=== PATIENT | female | born 1970 | race African-American/Black ===

== ENCOUNTER 2017-08-12 18:26 | Emergency (ER) | payer BC, OTHER ==
--- NOTE | 2017-08-12 19:04 | PDOC ---
Rapid Medical Evaluation Time Seen by Provider: 08/12/17 18:58 Medical Evaluation: Allergies Allergy/AdvReac Type Severity Reaction Status Date / Time Penicillins Allergy Intermediate Verified 05/21/13 18:38 pseudoephedrine HCl Allergy Mild Verified 05/21/13 18:38 [From [facility]] 08/12/17 18:58 The patient presents with a chief complaint of: [Fever, bodyaches, Left sided Chest pain for one hour radiating to the back, Was diagnosed at urgent care yesterday with the Influenza A. ] I have performed a brief in-person evaluation of this patient. Pertinent physical exam findings: Temp 99.5 Lungs clear, HR 104, Lungs clear Pain on palpation to the left side of the chest] I have ordered the following: [EKG, chest Xray] The patient will proceed to the ED for further evaluation. 08/12/17 19:04 Discharge Disposition - Diagnosis Chest pain Qualifiers: Chest pain type: other chest pain Qualified Code(s): R07.89 - Other chest pain ; R07.8 - Other chest pain - Referrals - Patient Instructions - Post Discharge Activity
[2017-08-12 19:05] VITALS: BP 116/75; PULSE 104; TEMP 99.5; BMI 44.6
[2017-08-12] MEDS ORDERED: IBUPROFEN 600 MG TABLET (FP) PO ONE ×2 (19:46→20:06)
[2017-08-12] MEDS ORDERED: SODIUM CHLORIDE 1,000 ML IV STA ×2 (19:46→22:03)
[2017-08-12] MEDS ORDERED: METOCLOPRAMIDE HCL INJECTION 10 MG/2 ML VIAL IVPUSH ONE ×2 (19:46→22:03)
--- NOTE | 2017-08-12 19:57 | PDOC ---
History of Present Illness - General History Source: Patient Exam Limitations: No Limitations - History of Present Illness Initial Comments: 08/12/17 20:18 Patient is a 47 year old female with a significant past medical history of Lupus , HTN, who presents to the ED with complaints of chest pain that began this morning. Patient reports experiencing cold like symptoms earlier this week suddenly while at home. She reports experiencing low grade fever yesterday afternoon prompting her to go to the urgent care center for evaluation, and was diagnosed with Flu type A and prescribed Tamiflu. Patient reports experiencing chest pain this afternoon while at home prompting her to come into the ED for further evaluation. She reports chest pain is a sharp localized pain that is increased with coughing,that she states is non productive. Patient states she has been experiencing a piercing headache that she states feels like she has a knife at the top of her head. She reports having bites throughout her body due to previous living conditions, but any associated itchiness. Denies nausea, vomiting. Denies fevers, chills. Denies dysuria, hematuria, Constipation, diarrhea. Denies any other symptoms. Allergies: Penicillins, pseudoephedrine HCl, Peanuts, Sumatriptan Social history: No smoking. No alcohol. No illicit drugs. Surgical history: None PMD: Dr. Espinosa <Ricardo Maxwell - Last Filed: 08/12/17 21:04> <Estrella Juarez - Last Filed: 08/12/17 23:42> - General Chief Complaint: Chest Pain Stated Complaint: FEVER Time Seen by Provider: 08/12/17 18:58 Past History <Ricardo Maxwell - Last Filed: 08/12/17 21:04> - Travel Traveled outside of the country in the last 30 days: No - Past Medical History COPD: No HTN: Yes Other medical history: LUPUS, MIXED CONNECTIVE TISSUE DISEASE Comment:: 08/12/17 21:45 HTN 2/2 SLE - Immunization History Td Vaccination: Yes TDAP Vaccination: Yes Immunization Up to Date: No - Suicide/Smoking/Psychosocial Hx Smoking Status: No Smoking History: Never smoked Number of Cigarettes Smoked Daily: 0 Information on smoking cessation initiated: No Hx Alcohol Use: No Drug/Substance Use Hx: No Substance Use Type: None <Estrella Juarez - Last Filed: 08/12/17 23:42> - Past Medical History Allergies/Adverse Reactions: Allergies Allergy/AdvReac Type Severity Reaction Status Date / Time Penicillins Allergy Intermediate Verified 08/12/17 18:59 pseudoephedrine HCl Allergy Mild Verified 08/12/17 18:59 [From Sudafed] peanut Allergy Verified 08/12/17 18:59 sumatriptan [From Imitrex] Allergy Verified 08/12/17 18:59 Home Medications: Ambulatory Orders No Home Medications 0 dose .ROUTE UTDICT 04/02/12 Diphenhydramine HCl [Benadryl Capsule -] 25 mg PO Q8H #16 capsule 05/22/13 Prednisone [Deltasone -] 20 mg PO UTDICT #8 tablet 05/22/13 Review of Systems - Review of Systems Able to Perform ROS?: Yes Comments:: 08/12/17 21:45 See HPI. remainder of systems reviewed and negative. All Other Systems: Reviewed and Negative <Estrella Juarez - Last Filed: 08/12/17 23:42> *Physical Exam - Vital Signs Last Vital Signs Temp Pulse Resp BP Pulse Ox 99.5 F 104 H 18 116/75 100 08/12/17 19:00 08/12/17 19:00 08/12/17 19:00 08/12/17 19:00 08/12/17 19:00 <Ricardo Maxwell - Last Filed: 08/12/17 21:04> - Vital Signs Last Vital Signs Temp Pulse Resp BP Pulse Ox 99.5 F 104 H 18 116/75 100 08/12/17 19:00 08/12/17 19:00 08/12/17 19:00 08/12/17 19:00 08/12/17 19:00 - Physical Exam Comments: 08/12/17 21:46 NAD EOMI, KRISTOPHER MMM, OP WNL NCAT, no midline cervical tenderness RRR, nl s1/s2, no m/r/g CTABL, no w/r/r, point tenderness low mid sternum. Soft, NTND No edema, WWP, no rash Neuro grossly intact, gait WNL, moving all 4 A&O x 3, mood/affect WNL. <Estrella Juarez - Last Filed: 08/12/17 23:42> Medical Decision Making - Medical Decision Making 08/12/17 21:48 A: 47yoF w/ active dx of Flu + on tamiflu presents w/ spot of chest tenderness midsterum and headache. Pt is taking tylenol only at home for flu symptoms, no trial of other analgesics. - sxs control - ekg - cxr - DC. 08/12/17 22:02 Pt feeling better after meds, complains of persistent headache in single spot on head. repeat meds, reeval. 08/12/17 23:38 Pt feeling much better w/ 2nd L IVF and reglan. All symptoms resolved. Counseled pt re: symptommatic control, rest, oral hydration for flu. has PMD f/u on Saturday Pt feels comfortable going home and verbalizes understanding of discharge instructions. <Estrella Juarez - Last Filed: 08/12/17 23:42> *DC/Admit/Observation/Transfer - Attestations Scribe Attestion: 08/12/17 20:18 Documentation prepared by Ricardo Maxwell, acting as medical aide for Estrella Juarez MD, MD/DO. <Ricardo Maxwell - Last Filed: 08/12/17 21:04> - Discharge Dispostion Admit: No <Estrella Juarez - Last Filed: 08/12/17 23:42> Diagnosis at time of Disposition: Headache, Influenza A Chest pain Qualifiers: Chest pain type: other chest pain Qualified Code(s): R07.89 - Other chest pain - Discharge Dispostion Disposition: HOME Condition at time of disposition: Stable - Referrals Referrals: Kuldip Espinosa MD [Primary Care Provider] - - Patient Instructions Printed Discharge Instructions: DI for Viral Upper Respiratory Infection -- Adult Additional Instructions: Symptommatic control as discussed. Tylenol for fevers ibuprofen for aches/pains/headche decongestant for sinus congestion, cough medicine for cough. throat lozenges for sore throat, etc. drink plenty of fluids with electrolytes -- soup, gatorade, water with electrolyte tablet added (eg- Emergen-C, Airborne, etc) eat a regular diet as tolerated. See your primary doctor on saturday as scheduled. - Post Discharge Activity
[2017-08-12] MEDS ORDERED: METOCLOPRAMIDE HCL INJECTION 10 MG/2 ML VIAL ONE ×2 (20:06→22:17)
[2017-08-12] MEDS ORDERED: morphine CARPU-JECT 4 MG/1 ML DISP.SYRIN IVPUSH ONE (22:03)
[2017-08-12] MEDS ORDERED: MORPHINE SULFATE 10 MG/1 ML *VIAL ONE (22:17)
--- NOTE | 2017-08-13 14:05 | EKG ---
Test Reason : Blood Pressure : / mmHG Vent. Rate : 082 BPM Atrial Rate : 082 BPM P-R Int : 132 ms QRS Dur : 072 ms QT Int : 352 ms P-R-T Axes : 058 034 025 degrees QTc Int : 411 ms NORMAL SINUS RHYTHM NORMAL ECG WHEN COMPARED WITH ECG OF 21-MAY-2013 19:16, NO SIGNIFICANT CHANGE WAS FOUND Confirmed by MD JESSIKA, ABDOULAYE ([id number]) on 08/13/2017 2:05:47 PM Referred By: Confirmed By:ABDOULAYE ROSEN MD
== END 2017-08-12 23:53 | disposition home or self-care (01) ==
LOC: JER 18:26
PROC: 3E033GC Introduction of Other Therapeutic Substance into Peripheral Vein, Percutaneous Approach (ICD-10-PCS; principal; 2017-08-12)
PROC: 3E033GC Introduction of Other Therapeutic Substance into Peripheral Vein, Percutaneous Approach (ICD-10-PCS; 2017-08-12)
PROC: 3E033NZ Introduction of Analgesics, Hypnotics, Sedatives into Peripheral Vein, Percutaneous Approach (ICD-10-PCS; 2017-08-12)
DX: J09.X2 Influenza due to identified novel influenza A virus with other respiratory manifestations (principal)
CPT/HCPCS: 71046-TC; 93005; 93010; 99283-25

== ENCOUNTER 2020-06-15 16:45 | Emergency (ER) | payer BC ==
[2020-06-15 16:54] VITALS: TEMP 98.3; BMI 36.6
[2020-06-15 19:55] LABS: POTASSIUM 3.5 mmol/L (3.5-5.1)
[2020-06-15 19:56] LABS: BASO % 0.9 % (0-2.0); EOS % 1.6 % (0-4.5); HEMATOCRIT 38.1 % (32.4-45.2); HEMOGLOBIN 12.3 GM/dL (10.7-15.3); LYMPH % 18.4 % (8-40); MCH 27.3 pg (25.7-33.7); MCHC 32.2 g/dl (32.0-36.0); MEAN CELL VOLUME 84.6 fl (80-96); MONO % 10.9 % (3.8-10.2); NEUT % 68.2 % (42.8-82.8); PLATELET COUNT 235 K/MM3 (134-434); RDW 15.9 % (11.6-15.6); WHITE BLOOD COUNT 7.6 K/mm3 (4.0-10.0)
[2020-06-15 19:58] LABS: ALBUMIN 3.5 g/dl (3.4-5.0); CALCIUM 9.3 mg/dL (8.5-10.1); MAGNESIUM 1.9 mg/dL (1.8-2.4)
[2020-06-15 20:02] LABS: CREATININE 0.7 mg/dL (0.55-1.3); INR 1.06 (0.83-1.09); PROTHROMBIN TIME (PATIENT) 12.8 SEC (9.7-13.0)
[2020-06-15 20:03] LABS: BILIRUBIN,TOTAL 0.3 mg/dL (0.2-1)
[2020-06-15 20:04] LABS: ACTIVATED PTT 33.3 SECONDS (25.2-36.5)
[2020-06-15 20:07] LABS: N-TERMINAL BNP 44.6 pg/ml (5-125)
[2020-06-15 20:10] LABS: LDH 200 U/L (84-246)
[2020-06-15 21:18] LABS: PH,URINE 5.5 (5.0-8.0); URINE APPEARANCE CLEAR; URINE BILIRUBIN NEGATIVE (NEGATIVE); URINE COLOR YELLOW; URINE GLUCOSE (UA) NEGATIVE (NEGATIVE); URINE KETONE TRACE (NEGATIVE); URINE LEUK ESTERASE NEGATIVE (NEGATIVE); URINE NITRITE NEGATIVE (NEGATIVE); URINE PROTEIN NEGATIVE (NEGATIVE); URINE UROBILINOGEN 0.2 mg/dL (0.2-1.0)
[2020-06-15 21:23] LABS: HCG,QUALITATIVE URINE Negative
[2020-06-15 21:34] VITALS: BP 148/74; PULSE 61
== END 2020-06-15 22:15 | disposition home or self-care (01) ==
LOC: JER 16:45
DX: R00.2 Palpitations (principal)
CPT/HCPCS: 36415; 71046-TC-FY; 80053; 81003; 82550; 82728; 83615; 83735; 83880; 84439; 84443; 84481; 84484; 84703; 85025; 85610; 85730; 86140; 93005; 93010; 99285-25

== ENCOUNTER 2020-06-19 21:48 | Emergency (ER) | payer BC ==
[2020-06-19 21:57] VITALS: TEMP 98.1; BMI 35.9
[2020-06-19] MEDS ORDERED: METOCLOPRAMIDE HCL INJECTION 10 MG/2 ML VIAL IVPUSH ONE (22:32)
[2020-06-19] MEDS ORDERED: ACETAMINOPHEN 1000 MG/100 ML VIAL (NON FORMULARY) IVPB ONE (22:43)
[2020-06-19] MEDS ORDERED: ACETAMINOPHEN INJECTION 100 ML IVPB ONE (22:44)
[2020-06-19] MEDS ORDERED: METOCLOPRAMIDE HCL INJECTION 10 MG/2 ML VIAL ONE (22:44)
[2020-06-19 23:23] LABS: HEMATOCRIT 39.2 % (32.4-45.2); HEMOGLOBIN 13.1 GM/dL (10.7-15.3); MCH 28.6 pg (25.7-33.7); MCHC 33.5 g/dl (32.0-36.0); MEAN CELL VOLUME 85.6 fl (80-96); MEAN PLT VOLUME 8.6 fl (7.5-11.1); PLATELET COUNT 206 K/MM3 (134-434); RBC 4.58 M/mm3 (3.60-5.2); RDW 16.4 % (11.6-15.6); WHITE BLOOD COUNT 6.6 K/mm3 (4.0-10.0)
[2020-06-19 23:42] LABS: POTASSIUM 3.6 mmol/L (3.5-5.1)
[2020-06-19 23:45] LABS: CALCIUM 8.9 mg/dL (8.5-10.1)
[2020-06-19 23:46] LABS: ALBUMIN 3.3 g/dl (3.4-5.0)
[2020-06-19 23:49] LABS: CREATININE 0.8 mg/dL (0.55-1.3)
[2020-06-19 23:50] LABS: BILIRUBIN,TOTAL 0.6 mg/dL (0.2-1); TOT PROT 6.9 g/dl (6.4-8.2)
[2020-06-20 00:45] VITALS: BP 132/70; PULSE 76
== END 2020-06-20 00:46 | disposition home or self-care (01) ==
LOC: JER 21:48
PROC: 3E0333Z Introduction of Anti-inflammatory into Peripheral Vein, Percutaneous Approach (ICD-10-PCS; principal; 2020-06-19)
PROC: 3E033GC Introduction of Other Therapeutic Substance into Peripheral Vein, Percutaneous Approach (ICD-10-PCS; 2020-06-19)
DX: R51.9 Headache, unspecified (principal)
CPT/HCPCS: 36415; 80053; 85027; 93005; 93010; 99284-25; J0131

== ENCOUNTER 2020-07-04 19:44 | Emergency (ER) | payer BC ==
[2020-07-04 20:17] VITALS: BP 154/83; PULSE 97; TEMP 98.1; BMI 35.5
== END 2020-07-04 22:55 | disposition home or self-care (01) ==
LOC: SUPCPDRO 19:44 → JER 19:44
DX: R00.0 Tachycardia, unspecified (principal)
CPT/HCPCS: 93005; 93010; 99283-25

== ENCOUNTER 2022-12-02 11:05 | Emergency (ER) | payer BC ==
[2022-12-02 11:18] VITALS: RESP 18; BMI 32.5
[2022-12-02] MEDS ORDERED: ACETAMINOPHEN INJECTION 100 ML IVPB ONE ×2 (12:21→12:29)
[2022-12-02] MEDS ORDERED: METOCLOPRAMIDE HCL INJECTION 10 MG/2 ML VIAL IVPB ONE (12:21)
[2022-12-02] MEDS ORDERED: ACETAMINOPHEN 1000 MG/100 ML BAG IVPB ONE (12:21)
[2022-12-02] MEDS ORDERED: METOCLOPRAMIDE HCL INJECTION 10 MG/2 ML VIAL ONE ×2 (12:21→12:28)
[2022-12-02] MEDS ORDERED: SODIUM CHLORIDE 0.9% 500 ML INFUS.BAG IV ONE (12:22)
[2022-12-02 12:33] LABS: BASO % 0.7 % (0-2.0); EOS % 0.7 % (0-4.5); HEMATOCRIT 36.2 % (32.4-45.2); HEMOGLOBIN 12.1 GM/dL (10.7-15.3); LYMPH % 23.2 % (8-40); MCH 26.9 pg (25.7-33.7); MCHC 33.3 g/dl (32.0-36.0); MEAN CELL VOLUME 80.7 fl (80-96); MEAN PLT VOLUME 8.8 fl (7.5-11.1); MONO % 9.6 % (3.8-10.2); NEUT % 65.8 % (42.8-82.8); PLATELET COUNT 162 10^3/uL (134-434); RBC 4.48 M/mm3 (3.60-5.2); RDW 18.2 % (11.6-15.6); WHITE BLOOD COUNT 5.2 K/mm3 (4.0-10.0)
[2022-12-02 12:39] LABS: PROTHROMBIN TIME (PATIENT) 11.6 SEC (9.7-13.0)
[2022-12-02 12:42] LABS: ACTIVATED PTT 32.6 SECONDS (25.2-36.5)
[2022-12-02 12:52] LABS: POTASSIUM 3.8 mmol/L (3.5-5.1)
[2022-12-02 12:55] LABS: ALBUMIN 3.2 g/dl (3.4-5.0); BLOOD UREA NITROGEN 13.6 mg/dL (7-18); CALCIUM 9.3 mg/dL (8.5-10.1)
[2022-12-02 12:58] LABS: CREATININE 0.7 mg/dL (0.55-1.3)
[2022-12-02 12:59] LABS: BILIRUBIN,TOTAL 0.8 mg/dL (0.2-1); TOT PROT 6.6 g/dl (6.4-8.2)
[2022-12-02 15:25] VITALS: BP 136/63; PULSE 63; TEMP 98
== END 2022-12-02 15:37 | disposition home or self-care (01) ==
LOC: JER 11:05
PROC: 3E033NZ Introduction of Analgesics, Hypnotics, Sedatives into Peripheral Vein, Percutaneous Approach (ICD-10-PCS; principal; 2022-12-02)
PROC: 3E033GC Introduction of Other Therapeutic Substance into Peripheral Vein, Percutaneous Approach (ICD-10-PCS; 2022-12-02)
PROC: 3E033GC Introduction of Other Therapeutic Substance into Peripheral Vein, Percutaneous Approach (ICD-10-PCS; 2022-12-02)
DX: R07.89 Other chest pain (principal); R51.9 Headache, unspecified; R41.0 Disorientation, unspecified; S06.0XAD Concussion with loss of consciousness status unknown, subsequent encounter; W01.198A Fall on same level from slipping, tripping and stumbling with subsequent striking against other object, initial encounter
CPT/HCPCS: 36415; 70450-TC; 71046-TC-FY; 80053; 84484; 85025; 85610; 85730; 93005; 93010; 99285-25

== ENCOUNTER 2023-03-19 23:39 | Emergency (ER) | payer BC ==
[2023-03-19 23:55] VITALS: TEMP 98.3; BMI 37.8
[2023-03-20] MEDS ORDERED: ACETAMINOPHEN 325 MG TABLET (FP) PO ONE (01:11)
[2023-03-20] MEDS ORDERED: ACETAMINOPHEN 325 MG TABLET (FP) ONE (01:48)
[2023-03-20 02:36] LABS: BASO % 0.7 % (0-2.0); EOS % 2.7 % (0-4.5); HEMOGLOBIN 12.5 GM/dL (10.7-15.3); LYMPH % 15.9 % (8-40); MCH 26.7 pg (25.7-33.7); MCHC 32.9 g/dl (32.0-36.0); MEAN CELL VOLUME 81.1 fl (80-96); MEAN PLT VOLUME 8.8 fl (7.5-11.1); MONO % 13.2 % (3.8-10.2); NEUT % 67.5 % (42.8-82.8); PLATELET COUNT 190 10^3/uL (134-434); RBC 4.69 M/mm3 (3.60-5.2); WHITE BLOOD COUNT 7.5 K/mm3 (4.0-10.0)
[2023-03-20 02:43] LABS: INR 0.94 (0.83-1.09); PROTHROMBIN TIME (PATIENT) 10.9 SEC (9.7-13.0)
[2023-03-20 02:46] LABS: ACTIVATED PTT 31.5 SECONDS (25.2-36.5)
[2023-03-20 03:24] LABS: POTASSIUM 4.2 mmol/L (3.5-5.1)
[2023-03-20 03:26] LABS: ALBUMIN 3.5 g/dl (3.4-5.0); CALCIUM 9.6 mg/dL (8.5-10.1)
[2023-03-20 03:27] LABS: MAGNESIUM 2.2 mg/dL (1.8-2.4)
[2023-03-20 03:29] LABS: CREATININE 0.8 mg/dL (0.55-1.3)
[2023-03-20 03:31] LABS: BILIRUBIN,TOTAL 0.2 mg/dL (0.2-1); TOT PROT 7.3 g/dl (6.4-8.2)
[2023-03-20 05:38] VITALS: BP 140/61; PULSE 61; RESP 14
== END 2023-03-20 05:45 | disposition home or self-care (01) ==
LOC: JER 23:39
DX: R00.2 Palpitations (principal); R00.0 Tachycardia, unspecified; R91.1 Solitary pulmonary nodule
CPT/HCPCS: 36415; 71046-TC-FY; 71275-TC; 80053; 82550; 83735; 84484; 84703; 85025; 85379; 85610; 85730; 93005; 93010; 99285-25; Q9967

== ENCOUNTER 2023-06-13 04:19 | Day surgery (SDC) | payer BC ==
[2023-06-10 17:37] VITALS: BMI 36.8
[2023-06-13] MEDS ORDERED: BUPIVACAINE HCL/PF 0.25% (2.5MG/ML) 10 ML VIAL ONE (09:40)
[2023-06-13] MEDS ORDERED: HEPARIN NA (PORCINE) 5,000 UNITS/ML 1ML VIAL ONE (09:44)
[2023-06-13] MEDS ORDERED: PROPOFOL 20 ML ONE ×2 (09:46→11:00)
[2023-06-13] MEDS ORDERED: BUPIVACAINE HCL/PF 0.25% (2.5MG/ML) 10 ML VIAL IJ ONE ×2 (09:47)
[2023-06-13] MEDS ORDERED: MIDAZOLAM HCL 2 MG/2 ML SINGLE DOSE VIAL ONE (09:47)
[2023-06-13] MEDS ORDERED: FENTANYL CITRATE/PF 50 MCG/ML VIAL ONE ×3 (09:47→10:50)
[2023-06-13] MEDS ORDERED: SUCCINYLCHOLINE CHLORIDE 200 MG/10 ML SYRINGE ONE (09:47)
[2023-06-13] MEDS ORDERED: ceFAZolin SODIUM 1 GM VIAL IVPB ONE (10:11)
[2023-06-13] MEDS ORDERED: PROMETHAZINE HCL 25 MG/1 ML VIAL IVPB PRN (11:24)
[2023-06-13] MEDS ORDERED: oxyCODONE HCL 5 MG TABLET PO PRN (11:24)
[2023-06-13] MEDS ORDERED: ONDANSETRON 4 MG/2 ML VIAL IVPUSH PRN (11:24)
[2023-06-13] MEDS ORDERED: LACTATED RINGERS SOLUTION 1,000 ML IV SCH (11:30)
[2023-06-13 14:16] VITALS: RESP 18
[2023-06-13 14:23] VITALS: BP 116/66; PULSE 64; TEMP 98.4
== END 2023-06-13 14:45 | disposition home or self-care (01) ==
LOC: JASU-SURG 04:19
PROVIDERS: ATTEND Student in an Organized Health Care Education/Training Program
PROC: 07BJ0ZX Excision of Left Inguinal Lymphatic, Open Approach, Diagnostic (ICD-10-PCS; principal; 2023-06-13 09:30)
DX: I88.8 Other nonspecific lymphadenitis (principal)
CPT/HCPCS: 81025; 87070; 87075; 87102; 87116; 87205; 87206; 87210; 88307-TC; 88312-TC; 94760; J1644

== ENCOUNTER 2025-01-31 13:48 | Observation (INO) | payer BC ==
[2025-01-31 15:09] LABS: ABSOLUTE IMMATURE GRANULOCYTES 0.01 x10^3/uL (0.0-0.031); BASOPHILS # 0.02 x10^3/uL (0.01-0.08); EOSINOPHIL % 1.6 % (0.7-5.8); EOSINOPHILS # 0.09 x10^3/uL (0.04-0.36); MCHC 31.7 g/dl (32.2-35.5); MEAN CELL VOLUME 93.5 fl (79.4-94.8); MEAN PLT VOLUME 10.4 fl (9.4-12.3); MONOCYTE # 0.60 x10^3/uL (0.24-0.86); MONOCYTE % 10.5 % (4.7-12.5); RDW 14.3 % (12.3-16.6)
[2025-01-31 15:17] LABS: INR 0.95 (0.83-1.09); PROTHROMBIN TIME (PATIENT) 10.4 SEC (9.7-13.0)
[2025-01-31 15:20] LABS: ACTIVATED PTT 28.1 SECONDS (25.2-36.5)
[2025-01-31 15:30] LABS: CO2 27.0 mmol/L (21-32); GLUCOSE,RANDOM 93.0 mg/dL (74-106)
[2025-01-31 15:33] LABS: CREATININE 0.7 mg/dL (0.55-1.3); SGOT/AST 22.0 U/L (15-37); SGPT/ALT 22.0 U/L (13-61)
[2025-01-31 15:34] LABS: TOT PROT 6.3 g/dl (6.4-8.2)
[2025-01-31 15:35] LABS: ALK PHOS 88.0 U/L (45-117)
[2025-01-31] MEDS: LACTATED RINGERS SOLUTION 1000 ML INFUS.BAG IV ONE (15:41)
[2025-01-31] MEDS ORDERED: ACETAMINOPHEN INJECTION 100 ML ONE (16:14)
[2025-01-31] MEDS: ACETAMINOPHEN 1000 MG/100 ML BAG IVPB ONE ×2 (16:17→20:06)
[2025-01-31 17:06] LABS: URINE APPEARANCE CLEAR; URINE BILIRUBIN NEGATIVE (NEGATIVE); URINE COLOR YELLOW; URINE GLUCOSE (UA) NEGATIVE (NEGATIVE); URINE KETONE NEGATIVE (NEGATIVE); URINE LEUK ESTERASE NEGATIVE (NEGATIVE); URINE NITRITE NEGATIVE (NEGATIVE); URINE PROTEIN NEGATIVE (NEGATIVE); URINE UROBILINOGEN 0.2 mg/dL (0.2-1.0)
[2025-01-31] MEDS ORDERED: IBUPROFEN 600 MG TABLET (FP) PO ONE (19:26)
[2025-01-31] MEDS ORDERED: IBUPROFEN 400 MG TABLET (FP) PO ONE (19:30)
[2025-01-31] MEDS: IBUPROFEN 400 MG TABLET (FP) PO ONE (19:30)
[2025-01-31] MEDS ORDERED: hydrOXYzine PAMOATE 25 MG CAPSULE (FP) PO ONE (23:27)
[2025-01-31] MEDS ORDERED: MELATONIN 5 MG TABLETS ONE (23:27)
[2025-01-31] MEDS: hydrOXYzine PAMOATE 25 MG CAPSULE (FP) PO ONE (23:31)
[2025-01-31] MEDS: MELATONIN 5 MG TABLETS PO ONE (23:31)
[2025-02-01 07:09] LABS: MCHC 31.3 g/dl (32.2-35.5); MEAN CELL VOLUME 94.1 fl (79.4-94.8); MEAN PLT VOLUME 10.5 fl (9.4-12.3); RDW 14.2 % (12.3-16.6)
[2025-02-01 07:15] LABS: CO2 30.0 mmol/L (21-32)
[2025-02-01 07:16] LABS: GLUCOSE,RANDOM 80.0 mg/dL (74-106)
[2025-02-01 07:19] LABS: CREATININE 0.6 mg/dL (0.55-1.3)
[2025-02-01] MEDS ORDERED: ACETAMINOPHEN 325 MG TABLET (FP) ONE (08:10)
[2025-02-01] MEDS: ACETAMINOPHEN 325 MG TABLET (FP) PO PRN (08:12)
[2025-02-01] MEDS ORDERED: ENALAPRIL MALEATE 5 MG TABLET ONE (09:18)
[2025-02-01] MEDS: ENALAPRIL MALEATE 10 MG TABLET PO SCH (09:21)
[2025-02-01 16:18] VITALS: BMI 31.6
[2025-02-01] MEDS: HEPARIN NA (PORCINE) 5,000 UNITS/ML 1ML VIAL SQ SCH (21:41)
[2025-02-01] MEDS: MELATONIN 5 MG TABLETS PO PRN (21:41)
[2025-02-02 09:42] VITALS: PULSE 44
[2025-02-02 12:33] VITALS: BP 159/94; RESP 14; TEMP 98
== END 2025-02-02 15:44 | disposition home or self-care (01) ==
LOC: JER 13:48 → JERBED 16:07 → J2W 02-01 15:00
PROVIDERS: ADMIT Student in an Organized Health Care Education/Training Program; ATTEND Nurse Practitioner Acute Care
PROC: 3E033NZ Introduction of Analgesics, Hypnotics, Sedatives into Peripheral Vein, Percutaneous Approach (ICD-10-PCS; principal; 2025-01-31)
PROC: 3E023GC Introduction of Other Therapeutic Substance into Muscle, Percutaneous Approach (ICD-10-PCS; 2025-01-31)
PROC: 3E0337Z Introduction of Electrolytic and Water Balance Substance into Peripheral Vein, Percutaneous Approach (ICD-10-PCS; 2025-01-31)
DX: S06.9XAA Unspecified intracranial injury with loss of consciousness status unknown, initial encounter (principal); M35.00 Sjogren syndrome, unspecified; W18.39XA Other fall on same level, initial encounter; Y93.89 Activity, other specified; Y92.410 Unspecified street and highway as the place of occurrence of the external cause; R55 Syncope and collapse; I10 Essential (primary) hypertension; M32.9 Systemic lupus erythematosus, unspecified; R00.1 Bradycardia, unspecified; Z87.828 Personal history of other (healed) physical injury and trauma
CPT/HCPCS: 36415; 70450-TC; 70551-TC; 72125-TC; 80048; 80053; 81003; 82962; 83605; 83735; 84443; 84484; 85025; 85027; 85610; 85730; 87086; 93005; 93010; 99285-25; G0378